=== PATIENT | male | born 1955 | race Caucasian/White ===

== ENCOUNTER 2022-08-16 07:54 | Outpatient (CLI) | payer OTHER ==
[2022-08-16] MEDS ORDERED: Iopamidol 370 76% 100 ML VIAL ONE (10:22)
== END 2022-08-16 07:55 | disposition home or self-care (01) ==
LOC: CT 07:54
PROVIDERS: ATTEND Thoracic Surgery (Cardiothoracic Vascular Surgery)
DX: I65.21 Occlusion and stenosis of right carotid artery (principal)
CPT/HCPCS: 70498; 82565; Q9967

== ENCOUNTER 2024-03-18 06:00 | Day surgery (SDC) | payer MEDICARE ==
[2024-03-17 14:49] VITALS: BMI 35.1
[2024-03-18] MEDS ORDERED: Vancomycin 1 GM VIAL ONE (06:23)
[2024-03-18] MEDS ORDERED: Thrombin 5000 UNITS/5 ML VIAL ONE (06:24)
[2024-03-18] MEDS ORDERED: PROPOFOL 20 ML ONE (06:44)
[2024-03-18] MEDS ORDERED: fentaNYL PF 100 MCG/2 ML SYRINGE ONE (06:44)
[2024-03-18] MEDS ORDERED: Lidocaine 1% PF 5 ML VIAL ONE (06:48)
[2024-03-18] MEDS ORDERED: Rocuronium Bromide 10 MG/ML (10ML VIAL) ONE (06:48)
[2024-03-18] MEDS ORDERED: CEFAZOLIN 2 GM VIAL ONE (07:15)
[2024-03-18 07:31] LABS: #Basophils Less than 0.03 10x3/uL (0.0-0.2); %Basophils 0.3 % (0.0-1.0); %Eosinophils 4.2 % (0.0-10.0); %Lymphocytes 14.6 % (21.0-51.0); %Monocytes 19.3 % (0.0-10.0); %Neutrophils 61.1 % (42.0-75.0); Hematocrit 39.4 % (42.0-52.0); Mean Corpuscular Hemoglobin 28.8 pg (27.0-31.0); Mean Corpuscular Volume 87.4 fL (78.0-98.0); Mean Platelet Volume 10.2 fL (7.4-10.4); Platelet Count 287 10x3/uL (130-400); RBC Distribution Width 14.8 % (11.5-14.5); Red Blood Cell (RBC) Count 4.51 mill/uL (4.70-6.10)
[2024-03-18 07:34] LABS: Anion Gap 16 mmol/L (10-20); BUN (Urea Nitrogen) 13 mg/dL (8.4-25.7); Calc. Creatinine Clearance 130 mL/min (70-130); Calcium 8.8 mg/dL (7.8-10.44); Carbon Dioxide 22 mmol/L (23-31); Chloride 107 mmol/L (98-107); Estimated GFR 96; Glucose 130 mg/dL (80-115); Potassium 3.6 mmol/L (3.5-5.1); Sodium 141 mmol/L (136-145)
[2024-03-18 07:53] LABS: PTT 28.9 sec (22.9-36.1); Prothrombin Time 13.4 sec (12.0-14.7)
[2024-03-18] MEDS ORDERED: PHENYLEPHRINE-NS 100 MCG/ML 10 ML SYRINGE ONE (08:16)
[2024-03-18] MEDS ORDERED: Ondansetron PF 4 MG/2 ML Vial ONE (08:22)
[2024-03-18] MEDS ORDERED: Dexamethasone 4 mg/ml Vial ONE (08:22)
[2024-03-18] MEDS ORDERED: SUGAMMADEX SODIUM 200 MG/2 ML VIAL ONE (08:59)
[2024-03-18] MEDS ORDERED: fentaNYL 50 mcg/mL 1 mL Vial ONE (09:21)
== END 2024-03-18 12:18 | disposition home or self-care (01) ==
LOC: SDC 06:00
PROVIDERS: ATTEND Surgery
PROC: 0JQ70ZZ Repair Back Subcutaneous Tissue and Fascia, Open Approach (ICD-10-PCS; principal; 2024-03-18)
DX: T81.30XA Disruption of wound, unspecified, initial encounter (principal); I10 Essential (primary) hypertension; I25.10 Atherosclerotic heart disease of native coronary artery without angina pectoris; E11.9 Type 2 diabetes mellitus without complications; E78.5 Hyperlipidemia, unspecified; Z95.1 Presence of aortocoronary bypass graft; Z86.73 Personal history of transient ischemic attack (TIA), and cerebral infarction without residual deficits; Z85.828 Personal history of other malignant neoplasm of skin; Z79.82 Long term (current) use of aspirin; Z79.02 Long term (current) use of antithrombotics/antiplatelets; Z79.899 Other long term (current) drug therapy
CPT/HCPCS: 13160; 80048; 85025; 85610; 85730; 97139; J1100; J2405; J2704; J3010; J3370